=== PATIENT | female | born 1980 | race African-American/Black ===

== ENCOUNTER 2016-09-28 01:21 | Emergency (ER) | payer OTHER ==
[~2016-09-28] VITALS: Ht 188 cm; Wt 140.0 kg
[2016-09-28 01:23] VITALS: BP 136/67; PULSE 93; RESP 16; TEMP 98.9; O2SAT 99
[2016-09-28] MEDS ORDERED: IBUPROFEN 800 MG TAB PO ONE (01:45)
--- NOTE | 2016-09-28 01:47 | PD ---
HPI Chief Complaint: ENT Complaint Time Seen by Provider: 01:44 Travel History International Travel<30 days: No Contact w/Intl Traveler<30days: No Traveled to known affect area: No History of Present Illness HPI Patient comes in complaining of sore throat that began yesterday evening around dinnertime. Patient states sharp stabbing pain in her throat that is radiating to her ear. Patient denies anything for this. Pain is worse with swallowing. Patient denies any known sick contacts. Denies any fevers, nausea, vomiting, chest pain or shortness of breath, sinus congestion, abdominal pain, diarrhea, headache, or neck pain. PFSH Past Medical History Bipolar Disorder: Yes Anxiety: Yes Depression: Yes ?: Not LMP: 09/18/16 Past Surgical History Section: Yes Social History Alcohol Use: No Tobacco Use: Yes (1 PPW) Substance Use: No Allergies-Medications (Allergen,Severity, Reaction): Coded Allergies: Amoxicillin (Verified Adverse Reaction, Severe, 09/28/16) Reported Meds & Prescriptions Reported Meds & Active Scripts Active Clindamycin (Clindamycin HCl) 300 Mg Cap 300 Mg PO Q8HR 10 Days Review of Systems Except as stated in HPI: all other systems reviewed are Neg Physical Exam Narrative GENERAL: Well-developed, overly nourished, in no acute distress, and non-ill appearing. SKIN: Focused skin assessment warm and dry. HEAD: Atraumatic. Normocephalic. EYES: Pupils equal and round. EOMI. No scleral icterus. No injection or drainage. ENT: No nasal bleeding or discharge. Mucous membranes pink and moist. Tympanic membranes pearly dalton bilaterally. Posterior pharynx mildly erythematous without exudate. Uvula is midline. Patient swallowing own saliva and there is no drooling. No tenderness facial sinuses palpation. NECK: Trachea midline. No cervical lymphadenopathy. Supple. No nuclear rigidity. CARDIOVASCULAR: Regular rate and rhythm. No murmur appreciated. RESPIRATORY: No accessory muscle use. No respiratory distress. Clear to auscultation. Breath sounds equal bilaterally. MUSCULOSKELETAL: No obvious deformities. No clubbing. No cyanosis. No edema. Full range of motion. NEUROLOGICAL: Awake and alert. No obvious cranial nerve deficits. Motor grossly within normal limits. Normal speech. PSYCHIATRIC: Appropriate mood and affect; insight and judgment normal. Data Data Last Documented VS Vital Signs Date Time Temp Pulse Resp B/P Pulse Ox O2 Delivery O2 Flow Rate FiO2 09/28/16 01:23 98.9 93 16 136/67 99 Orders Group A Rapid Strep Screen (09/28/16 01:39) Ibuprofen (Motrin) (09/28/16 01:45) Clindamycin (Cleocin) (09/28/16 02:45) MDM Medical Decision Making Medical Screen Exam Complete: Yes Emergency Medical Condition: Yes Differential Diagnosis Strep pharyngitis, viral pharyngitis, otitis media, otitis externa, otalgia, other Narrative Course Patient looks great, non-ill appearing. The patient is tolerating fluids and is well hydrated. Appears pharyngitis confirmed by rapid strep. assay. No clinical evidence by history or evaluation to suspect meningitis and/or sepsis. There was no evidence to suggest peritonsillar abscess or retropharyngeal abscess. I discussed with the patient, diagnosis, plan of care and to follow up with the patients primary physician. The patient was given antibiotics. The patient was instructed to return if the worsens in anyway, especially if not tolerating fluids, increased pain or swelling, difficulty swallowing or breathing, or as needed. The patient agreed with plan. Patient in no obvious distress upon re-evaluation. All pertinent laboratory result(s) discussed with patient. Patient was asked if they wanted to speak to my attending, which the patient did not wish to do at this time. Any questions/ concerns in reference to patient diagnosis/condition discussed and clarified prior to patient's discharge. Reinforced sheer importance of close follow up with patient's primary physician or primary care clinic. Instructed patient to return to ED immediately, if symptoms return/worsen. Pt showed understanding of above instructions. Further instructions and recommendations were detailed in discharge paperwork. Pt ambulated without difficulty out of ED at discharge. Diagnosis Primary Impression: Strep pharyngitis Patient Instructions: General Instructions, Strep Throat (ED) Additional Instructions: Follow-up with your primary care physician in 3-5 days for reevaluation. Take all medication as prescribed. Use [id number] Tylenol and/or ibuprofen as needed for pain and/or fevers. Follow instructions on the packaging. Drink plenty of non-caffeinated and nonalcoholic fluids. Return to the emergency department if symptoms get worse. Med/Other Pt SpecificInfo: Prescription(s) given Scripts Clindamycin 300 Mg Uot138 Mg PO Q8HR 10 Days Ref 0 Prov:Gadiel Jc MD 09/28/16 Disposition: 01 DISCHARGE HOME Condition: Stable Kevin Pelayo Sep 28, 2016 01:47
[2016-09-28] MEDS ORDERED: CLIN1CAP6 PO (02:42)
[2016-09-28] MEDS ORDERED: CLINDAMYCIN 150 MG CAP PO ONE (02:45)
== END 2016-09-28 02:52 | disposition home or self-care (01) ==
LOC: NEPD 01:21
DX: J02.0 Streptococcal pharyngitis (principal); F31.9 Bipolar disorder, unspecified; F41.9 Anxiety disorder, unspecified; F17.200 Nicotine dependence, unspecified, uncomplicated; Z79.899 Other long term (current) drug therapy
CPT/HCPCS: 87880; 99283

== ENCOUNTER 2018-01-16 17:03 | Inpatient (IN) ==
[2018-01-16] MEDS ORDERED: MethylPREDNISolone Sod Succinate Inj 125 MG/2 ML Vial IV.PUSH ONE (17:28)
[2018-01-16] MEDS ORDERED: Morphine Inj 4 MG/ML Vial IV.PUSH ONE ×2 (17:30→20:47)
[2018-01-16] MEDS ORDERED: Sodium Chlor 0.9% Inj 500 ML IV.SIG ONE (17:33)
--- NOTE | 2018-01-16 17:37 | ED ---
HPI General Chief complaint: Dental/Oral Stated complaint: Throat issue Time Seen by Provider: 01/16/18 17:15 Source: patient Mode of arrival: ambulatory Limitations: physical limitation (pain, swelling inthe throat) History of Present Illness HPI Narrative: 38-year-old female presents the ED for evaluation of 12/13 left- sided posterior throat pain. Onset this morning. She states that the pain is worsened over the day and now she is unable to swallow her secretions. Pain radiates towards the ear. Pain is sharp in quality, no alleviating or exacerbating factors reported. Patient endorses chills but has not measured a fever at home. She denies sick contacts. She endorses tubal ligation, LMP 01/07. History gathering is limited secondary to the patient's reticence to speak secondary to pain. Related Data Home Medications Medication Instructions Recorded Confirmed No Known Home Medications 01/16/18 01/16/18 Allergies Allergy/AdvReac Type Severity Reaction Status Date / Time latex Allergy Rash Verified 01/16/18 17:07 Review of Systems ROS: all other systems reviewed are negative PMFSH Medical History Medical History Anxiety (Acute) Bipolar 1 disorder (Acute) Depression (Acute) PTSD (post-traumatic stress disorder) (Acute) Surgical History Surgical History Previous section (Acute) Social History Social History Substance History: Active Abuse Second Hand Smoke Exposure: No Smoking Status: Never smoker How Often Do You Have a Drink Containing Alcohol: Never Recent Travel in [facility] within the Last 8 Weeks: No Recent Out of Country Travel within the Last 8 Weeks: No Substance Abuse Detail Marijuana: Substance Use Status: Active Route Used Substance Abuse: Inhalation Last Used: 01/15/18 Immunization History Tetanus Immunization: <5 Years Tetanus Immunization Year if Known: 2016 Exam Narrative Exam Narrative: GENERAL: Well-nourished, well-developed -[place] female in some distress. Patient has a hot potato voice. SKIN: Focused skin assessment warm/dry. HEAD: Atraumatic. Normocephalic. EYES: Pupils equal and round. No scleral icterus. No injection or drainage. ENT: Right tympanic membrane is obscured by cerumen. Left tympanic membrane pearly dalton, no loss of landmarks. Oropharynx with large mass in the posterior left tonsillar pole. Airway patent. Uvula distorted to the right. NECK: Trachea midline. No JVD. No lymphadenopathy. CARDIOVASCULAR: Regular rate and rhythm. No murmur appreciated. RESPIRATORY: No accessory muscle use. Clear to auscultation. Breath sounds equal bilaterally. GASTROINTESTINAL: Abdomen soft, non-tender, nondistended. Hepatic and splenic margins not palpable. MUSCULOSKELETAL: No obvious deformities. No clubbing. No cyanosis. No edema. NEUROLOGICAL: Awake and alert. No obvious cranial nerve deficits. Motor grossly within normal limits. Normal speech. PSYCHIATRIC: Appropriate mood and affect; insight and judgment normal. Course Initial Documented Vital Signs Temperature 100.5 F H 01/16/18 17:05 Pulse Rate 105 H 01/16/18 17:05 Respiratory Rate 26 H 01/16/18 17:05 Pulse Oximetry 100 01/16/18 17:05 Last Documented Vital Signs Temperature 98.4 F 01/16/18 19:17 Pulse Rate 63 01/16/18 18:50 Respiratory Rate 18 01/16/18 18:50 Blood Pressure 157/89 H 01/16/18 18:50 Pulse Oximetry 100 01/16/18 18:50 Medical Decision Making [facility] Narrative Medical decision making narrative: 38-year-old female presents the ED for evaluation of throat pain. Onset this morning. Patient's febrile and tachycardic on presentation. Physical exam concerning for peritonsillar abscess. O2 saturations 100% with respiratory rate of 18. Patient was administered IV steroids, fluids, acetaminophen, Unasyn. No leukocytosis. test negative. CT concerning for peritonsillar mass versus abscess with compromise of the airway on a few views. On recheck the patient sleeping. O2 sats remained above 95. I spoke with Dr. Ramesh who recommends adding clindamycin and changing to Rocephin. He like the patient n.p.o. at midnight and admitted to medicine. I spoke with Dr. Castaneda who agrees to accept the patient to the medicine service. We will admit her to the ICU for airway checks. Patient is agreeable to this plan. Please see medicine and ENT notes for disposition. Medical Screen Exam Complete: Yes Emergency Medical Condition: Yes Differential Diagnosis Differential Diagnosis: Pharyngitis versus strep pharyngitis versus peritonsillar abscess versus other Lab Data Result diagrams: 01/16/18 17:38 01/16/18 17:38 POC Results POC Urine Results Negative POC Urine Results Negative Lab Results 01/16/18 01/16/18 01/16/18 Range/Units 17:38 17:38 17:38 WBC 11.0 (4.0-11.0) th/mm3 RBC 3.70 L (4.00-5.30) mil/mm3 Hgb 9.0 L (11.6-15.3) gm/dL Hct 28.8 L (35.0-46.0) % MCV 77.9 L (80.0-100.0) fL MCH 24.2 L (27.0-34.0) pg MCHC 31.0 L (32.0-36.0) % RDW 20.0 H (11.6-17.2) % Plt Count 227 (150-450) th/mm3 MPV 9.8 (7.0-11.0) fL Neut % (Auto) 75.3 H (16.0-70.0) % Lymph % (Auto) 13.0 (9.0-44.0) % Brown % (Auto) 11.0 H (0.0-8.0) % Eos % (Auto) 0.3 (0.0-4.0) % Baso % (Auto) 0.4 (0.0-2.0) % Neut # (Auto) 8.3 H (1.8-7.7) th/mm3 Lymph # (Auto) 1.4 (1.0-4.8) th/mm3 Brown # (Auto) 1.2 H (0.0-0.9) th/mm3 Eos # (Auto) 0.0 (0.0-0.4) th/mm3 Baso # (Auto) 0.0 (0.0-0.2) th/mm3 WBC Differential . Differential Comment Auto diff final Sodium 141 (136-145) meq/L Potassium 3.9 (3.5-5.1) meq/L Chloride 107 (98-107) meq/L Carbon Dioxide 28.3 (21.0-32.0) meq/L Anion Gap 6 (5-15) meq/L BUN 10 (7-18) mg/dL Creatinine 0.76 (0.50-1.00) mg/dL Estimated GFR Greater than 89 (>89) mL/min Random Glucose 86 (74-106) mg/dL Lactic Acid 0.8 (0.4-2.0) mmol/L Calcium 8.6 (8.5-10.1) mg/dL Magnesium 2.1 (1.5-2.5) mg/dL Total Bilirubin 0.3 (0.2-1.0) mg/dL AST 34 (15-37) U/L ALT 34 (10-53) U/L Alkaline Phosphatase 82 (45-117) U/L Total Protein 7.7 (6.4-8.2) g/dL Albumin 3.4 (3.4-5.0) g/dL Imaging Data Radiologist's impression: Soft Tissue Neck CT 01/16/18 17:28 CONCLUSION: 1. Abnormal exam demonstrating masslike oral pharyngeal wall thickening, greater on the left than on the right causing significant compromise of the oral pharyngeal airway. There is also thickening of the adenoid tissue. 2. Mildly prominent left jugular nodes. ECG Data Attestation: I personally reviewed and interpreted this ECG as follows: Interpretation: EKG rate 78, sinus rhythm. HI interval 138, QRS 83, QTC 444 ms. Normal axis. No acute ST changes. Discharge Plan Discharge Disposition Patient Disposition: 30 Still Patient Physicians Team ED Provider: Brenden Martinez ED Midlevel Provider: Teena Apodaca Primary Care Provider: Primary Care Ambrose,Aimee Attending Provider: Isabela Castaneda Other Providers: Pavel Ramesh Discharge Interventions Interventions: Vital Signs Last Done: 01/16/18 19:17 Status ED Status: Admitted Patient
[2018-01-16 17:59] LABS: Baso % (Auto) 0.4 % (0.0-2.0); Eos % (Auto) 0.3 % (0.0-4.0); Hematocrit 28.8 % (35.0-46.0); Lymph # (Auto) 1.4 th/mm3 (1.0-4.8); Mean Corpuscular Hemoglobin 24.2 pg (27.0-34.0); Mean Corpuscular Volume 77.9 fL (80.0-100.0); Mean Platelet Volume 9.8 fL (7.0-11.0); Mono # (Auto) 1.2 th/mm3 (0.0-0.9); Neut # (Auto) 8.3 th/mm3 (1.8-7.7); Neut % (Auto) 75.3 % (16.0-70.0); Platelet Count 227 th/mm3 (150-450)
[2018-01-16] MEDS ORDERED: Ampicillin/Sulbactam Inj 3 GM in Sodium Chloride 0.9% Inj 100 ML IV.SIG ONE ×2 (18:05→19:27)
[2018-01-16 18:21] LABS: Alanine Aminotransferase 34 U/L (10-53); Albumin 3.4 g/dL (3.4-5.0); Anion Gap 6 meq/L (5-15); Aspartate Aminotransferase 34 U/L (15-37); Blood Urea Nitrogen 10 mg/dL (7-18); Calcium 8.6 mg/dL (8.5-10.1); Carbon Dioxide 28.3 meq/L (21.0-32.0); Chloride 107 meq/L (98-107); Glomerular Filtration Rate Greater Than 89 mL/min (>89); Glucose,Random 86 mg/dL (74-106); Magnesium 2.1 mg/dL (1.5-2.5); Potassium 3.9 meq/L (3.5-5.1); Sodium 141 meq/L (136-145)
[2018-01-16 18:23] LABS: Alkaline Phosphatase 82 U/L (45-117); Total Protein 7.7 g/dL (6.4-8.2)
--- NOTE | 2018-01-16 18:57 | CT ---
EXAM DATE: 01/16/2018 6:30 PM EST AGE/SEX: 38 years / Female INDICATIONS: Left throat swelling and pain. Evaluate for abscess. CLINICAL DATA: This is the patient's initial encounter. Patient reports that signs and symptoms have been present for 1 day and indicates a pain score of 10/10. MEDICAL/SURGICAL HISTORY: None. None. RADIATION DOSE: 20.43 CTDI (mGy) COMPARISON: No prior exams available for comparison. TECHNIQUE: Helical acquisition was performed using a multirow detector CT scanner during the adminis tration of 70 ml Omnipaque 350 (iohexol) nonionic water-soluble contrast as a single exam dose. Usi ng automated exposure control and adjustment of the mA and/or kV according to patient size, radiation dose was kept as low as reasonably achievable to obtain optimal diagnostic quality images. DICOM fo rmat image data is available electronically for review and comparison. FINDINGS: The examination is abnormal demonstrating marked swelling of the left oral pharyngeal tissues measur ing 4.5 x 2.8 cm and causing deviation of the airway to the right and, on 3 images (images #26 throug h 28), the airway is not discernible. No focal collections of gas within the thickened tissue. The ri ght lymphatic tissue in the tonsillar fossa is also mildly enlarged and the adenoid tissue is thicken ed to 2.5 cm. Soft tissue thickening extends along the left epiglottis. The glottic airway and infrag lottic airway is normal in appearance. Left jugular lymph nodes measure up to 1.3 cm in size. There i s a symmetric appearance of the parotid and submandibular glands. The thyroid has a homogeneous densi ty. Osseous structures are grossly intact. CONCLUSION: 1. Abnormal exam demonstrating masslike oral pharyngeal wall thickening, greater on the left than on the right causing significant compromise of the oral pharyngeal airway. There is also thickening of the adenoid tissue. 2. Mildly prominent left jugular nodes. Electronically signed by: Keenan Amin MD 01/16/2018 6:56 PM EST
[2018-01-16] MEDS ORDERED: Clindamycin 900 mg/NS Premix 900 MG/50 ML PIGGYBACK IV.SIG ONE (19:36)
[2018-01-16] MEDS ORDERED: Bisacodyl 10 MG Supp RECTAL PRN (22:01)
[2018-01-16] MEDS ORDERED: Morphine Inj 4 MG/ML Vial IV.PUSH PRN (22:06)
--- NOTE | 2018-01-16 22:10 | P.HP ---
History of Present Illness Service: [facility] Primary Care Physician: No Primary Care Physician History of Present Illness: 38-year-old female with no significant past medical history presents to the emergency department for evaluation of neck swelling and difficulty swallowing/ breathing. The patient reports that yesterday she had right-sided neck and throat swelling with pain however she had several coughing spells and coughed up mucus and blood which relieved her symptoms. She was in her usual state of health when she went to bed and awoke this morning with significant left-sided neck swelling and left-sided throat pain. She reports difficulty breathing and speaking. She is spitting her secretions into an emesis basin. Her oxygen saturation is 100% on room air. No stridor. The patient endorses a 1 day history of fever/chills. The patient denies any chest pain. No abdominal pain. No nausea/vomiting/diarrhea. No lateralizing signs/symptoms. Inpatient Certification: I certify that the inpatient services were ordered in accordance with Medicare regulations governing the order. This includes certification that hospital inpatient services are reasonable and necessary and in the case of services not specified as inpatient-only under 42 CFR 419.22(n), that they are appropriately provided as inpatient services in accordance to with the 2-midnight benchmark under 43 CFR 412.3(e) Review of Systems All other systems reviewed negative except as stated in [facility] - History History Provided By: Patient - Medical History Medical History: Medical History (Last Reviewed 01/16/18 @ 22:03 by Isabela Castaneda MD) Anxiety Bipolar 1 disorder Depression PTSD (post-traumatic stress disorder) - Surgical History Surgical History: Surgical History (Last Reviewed 01/16/18 @ 22:03 by Isabela Castaneda MD) Previous section - Family History Family History: Family History (Last Updated 01/16/18 @ 22:04 by Isabela Castaneda MD) Other Family history normal - Tobacco History Second Hand Smoke Exposure: No Smoking Status: Never smoker - Alcohol History How Often Do You Have a Drink Containing Alcohol: Never - Substance Use History Substance History: Active Abuse - Substance Use Type Marijuana Status: Active Route Used: Inhalation Last Used: 01/15/18 - Travel History Recent Travel in the [place] Within the Last 8 Weeks: No Recent Travel Out of the Country Within the Last 8 Weeks: No - Immunization History Tetanus Immunization: <5 Years Tetanus Immunization Year if Known: 2015 Medications and Allergies Allergies Allergy/AdvReac Type Severity Reaction Status Date / Time latex Allergy Rash Verified 01/16/18 17:07 Home Medications Medication Instructions Recorded Confirmed Type No Known Home Medications 01/16/18 01/16/18 History Exam Vital signs: Vital Signs 01/16/18 17:05 01/16/18 17:08 01/16/18 17:14 Temperature 100.5 F H Pulse Rate 105 H 98 H Respiratory Rate 26 H 22 Blood Pressure 247/127 H Pulse Oximetry 100 100 01/16/18 17:36 01/16/18 18:50 01/16/18 19:17 Temperature 98.4 F Pulse Rate 63 Respiratory Rate 18 Blood Pressure 157/89 H Pulse Oximetry 99 100 Intake & Output 01/16/18 01/16/18 01/17/18 06:59 18:59 06:59 Intake Total 600 / 600 150 / 150 Balance 600 / 600 150 / 150 Weight 83.915 kg Intake: IV 600 / 600 150 / 150 Ofirmev Inj 1,000 mg In 100 ml 100 / 100 @ 400 mls/hr IV.SIG ONCE ONE Rx #:[id number] Unasyn Inj 3 GM In NS Inj 100 100 / 100 ML @ 200 mls/hr IV.SIG ONCE ONE Rx#:[id number] Cleocin 900 mg/NS Premix 900 mg 50 / 50 In 50 ml @ 100 mls/hr IV.SIG ONCE ONE Rx#:[id number] NS Inj 500 ML @ Wide Open IV. 500 / 500 SIG BOLUS ONE Rx#:[id number] Narrative: Gen.: No acute distress Head: Normocephalic. Atraumatic. EENT: Pupils equal round and reactive to light. Nose without drainage. Airway intact. Oropharynx with large mass in the posterior left tonsillar pole. Uvula deviation to the right. Left sided neck swelling with trachea midline. Cardiovascular: Regular rate and rhythm. No murmurs, rubs or gallops. Respiratory: Lungs clear to auscultation bilaterally. No wheezes or rhonchi. Abdomen: Soft, nontender, nondistended. No peritoneal signs. Musculoskeletal: No gross deformities. No edema. Skin: No obvious rashes or erythema. Neuro: Sensory and motor grossly intact. Cranial nerves II through XII grossly intact. Results - Labs CBC & Chem 7: 01/16/18 17:38 01/16/18 17:38 Labs: Laboratory Results - last 24 hr 01/16/18 01/16/18 01/16/18 17:38 17:38 17:38 WBC 11.0 RBC 3.70 L Hgb 9.0 L Hct 28.8 L MCV 77.9 L MCH 24.2 L MCHC 31.0 L RDW 20.0 H Plt Count 227 MPV 9.8 Neut % (Auto) 75.3 H Lymph % (Auto) 13.0 Dickinson % (Auto) 11.0 H Eos % (Auto) 0.3 Baso % (Auto) 0.4 Neut # (Auto) 8.3 H Lymph # (Auto) 1.4 Dickinson # (Auto) 1.2 H Eos # (Auto) 0.0 Baso # (Auto) 0.0 WBC Differential . Differential Comment Auto diff final Sodium 141 Potassium 3.9 Chloride 107 Carbon Dioxide 28.3 Anion Gap 6 BUN 10 Creatinine 0.76 Estimated GFR Greater than 89 Random Glucose 86 Lactic Acid 0.8 Calcium 8.6 Magnesium 2.1 Total Bilirubin 0.3 AST 34 ALT 34 Alkaline Phosphatase 82 Total Protein 7.7 Albumin 3.4 - Imaging Impressions Soft Tissue Neck CT 01/16/18 17:28 CONCLUSION: 1. Abnormal exam demonstrating masslike oral pharyngeal wall thickening, greater on the left than on the right causing significant compromise of the oral pharyngeal airway. There is also thickening of the adenoid tissue. 2. Mildly prominent left jugular nodes. Caprini VTE Risk Assessment Caprini VTE Risk Assessment: No/Low Risk (score <= 1) Caprini Risk Assessment Model: Point Value = 1 Point Value = 2 Point Value = 3 Point Value = 5 Age 41-60 Minor surgery BMI > 25 kg/m2 Swollen legs Varicose veins or History of unexplained or recurrent spontaneous Oral contraceptives or hormone replacement Sepsis (< 1 month) Serious lung disease, including pneumonia (< 1 month) Abnormal pulmonary function Acute myocardial infarction Congestive heart failure (< 1 month) History of inflammatory bowel disease Medical patient at bed rest Age 61-74 Arthroscopic surgery Major open surgery (> 45 min) Laparoscopic surgery (> 45 min) Malignancy Confined to bed (> 72 hours) Immobilizing plaster cast Central venous access Age >= 75 History of VTE Family history of VTE Factor V Leiden Prothrombin [id number] Lupus anticoagulant Anticardiolipin antibodies Elevated serum homocysteine Heparin-induced thrombocytopenia Other congenital or acquired thrombophilia Stroke (< 1 month) Elective arthroplasty Hip, pelvis, or leg fracture Acute spinal cord injury (< 1 month) Prophylaxis Regimen: Total Risk Factor Score Risk Level Prophylaxis Regimen 0-1 Low Early ambulation 2 Moderate Order ONE of the following: *Sequential Compression Device (SCD) *Heparin 5000 units SQ BID 3-4 Higher Order ONE of the following medications: *Heparin 5000 units SQ TID *Enoxaparin/Lovenox 40 mg SQ daily (WT < 150 kg, CrCl > 30 mL/min) *Enoxaparin/Lovenox 30 mg SQ daily (WT < 150 kg, CrCl > 10-29 mL/min) *Enoxaparin/Lovenox 30 mg SQ BID (WT < 150 kg, CrCl > 30 mL/min) AND/OR *Sequential Compression Device (SCD) 5 or more Highest Order ONE of the following medications: *Heparin 5000 units SQ TID (Preferred with Epidurals) *Enoxaparin/Lovenox 40 mg SQ daily (WT < 150 kg, CrCl > 30 mL/min) *Enoxaparin/Lovenox 30 mg SQ daily (WT < 150 kg, CrCl > 10-29 mL/min) *Enoxaparin/Lovenox 30 mg SQ BID (WT < 150 kg, CrCl > 30 mL/min) AND *Sequential Compression Device (SCD) Assessment and Plan - Plan Assessment/plan: 1. Oropharyngeal mass Neck CT significant for oral pharyngeal wall thickening greater on the left than the right causing significant compromise of the oropharyngeal airway ENT consulted, appreciate assistance Antibiotics per ENTRocephin 2 g every 12 hours and clindamycin IV IV steroids Monitor airway closely in ICU setting FEN N.p.o. NS at 100 cc/hour Electrolytes: Monitor and replete as needed
[2018-01-16] MEDS: Sod Chloride 0.9% Inj 1,000 ML IV.CONT SCH (23:01)
[2018-01-17] MEDS: Clindamycin 900 mg/NS Premix 900 MG/50 ML PIGGYBACK IV.SIG SCH ×3 (04:30→20:19)
[2018-01-17 07:01] LABS: Baso % (Auto) 0.1 % (0.0-2.0); Hematocrit 28.1 % (35.0-46.0); Lymph # (Auto) 0.5 th/mm3 (1.0-4.8); Lymph % (Auto) 5.4 % (9.0-44.0); Mean Corpuscular Volume 78.2 fL (80.0-100.0); Mean Platelet Volume 9.7 fL (7.0-11.0); Mono # (Auto) 0.4 th/mm3 (0.0-0.9); Mono % (Auto) 3.9 % (0.0-8.0); Neut % (Auto) 90.6 % (16.0-70.0); Platelet Count 209 th/mm3 (150-450); Red Blood Count 3.59 mil/mm3 (4.00-5.30); Red Cell Distribution Width 20.3 % (11.6-17.2); White Blood Count 9.9 th/mm3 (4.0-11.0)
[2018-01-17 07:25] LABS: Anion Gap 10 meq/L (5-15); Blood Urea Nitrogen 7 mg/dL (7-18); Calcium 8.7 mg/dL (8.5-10.1); Carbon Dioxide 23.2 meq/L (21.0-32.0); Chloride 105 meq/L (98-107); Glomerular Filtration Rate Greater Than 89 mL/min (>89); Glucose,Random 113 mg/dL (74-106); Sodium 138 meq/L (136-145)
[2018-01-17] MEDS: Sod Chloride 0.9% Inj 1,000 ML IV.CONT SCH ×2 (09:37→22:23)
--- NOTE | 2018-01-17 12:32 | ECG ---
Date Performed: 01/16/2018 Time Performed: 17:57:48 PTAGE: 38 years EKG: Sinus rhythm MODERATE VOLTAGE CRITERIA FOR LVH, CONSIDER NORMAL VARIANT BORDERLINE ECG NO PREVIOUS TRACING DOCTOR: Silvestre Boone Interpretating Date/Time 01/17/2018 12:30:49
--- NOTE | 2018-01-17 14:11 | P.PNIM ---
Subjective Interval history: breathing a little better. neck swelling down a little. no cp or sob. no n/v. Physical Exam Vital signs: Vital Signs 01/16/18 17:05 01/16/18 17:08 01/16/18 17:14 Temperature 100.5 F H Pulse Rate 105 H 98 H Respiratory Rate 26 H 22 Blood Pressure 247/127 H Pulse Oximetry 100 100 01/16/18 17:36 01/16/18 18:50 01/16/18 19:17 Temperature 98.4 F Pulse Rate 63 Respiratory Rate 18 Blood Pressure 157/89 H Pulse Oximetry 99 100 01/16/18 22:00 01/16/18 23:16 01/17/18 00:48 Temperature Pulse Rate 55 L 60 Respiratory Rate 16 20 Blood Pressure 140/89 124/75 128/68 Pulse Oximetry 100 100 01/17/18 00:49 01/17/18 01:00 01/17/18 01:10 Temperature 98.3 F Pulse Rate 67 65 Respiratory Rate 26 H Blood Pressure 139/68 Pulse Oximetry 99 100 01/17/18 02:00 01/17/18 03:00 01/17/18 04:00 Temperature 98.3 F 98.3 F Pulse Rate 64 66 63 Respiratory Rate 13 15 16 Blood Pressure 139/72 134/70 143/71 H Pulse Oximetry 97 99 100 01/17/18 04:37 01/17/18 05:00 01/17/18 06:00 Temperature Pulse Rate 70 59 L Respiratory Rate 15 15 Blood Pressure 134/70 156/99 H Pulse Oximetry 100 99 100 01/17/18 07:00 01/17/18 07:12 01/17/18 08:00 Temperature 98.2 F Pulse Rate 60 85 54 L Respiratory Rate 16 23 18 Blood Pressure 154/77 H 161/81 H Pulse Oximetry 100 100 100 01/17/18 09:00 01/17/18 10:00 01/17/18 11:06 Temperature Pulse Rate 62 55 L 68 Respiratory Rate 14 13 26 H Blood Pressure 137/76 146/79 H Pulse Oximetry 100 100 100 01/17/18 12:00 Temperature 97.9 F Pulse Rate 65 Respiratory Rate 14 Blood Pressure 128/62 Pulse Oximetry 100 Intake & Output 01/16/18 01/17/18 01/17/18 18:59 06:59 18:59 Intake Total 600 / 600 300 / 300 1150 / 1150 Balance 600 / 600 300 / 300 1150 / 1150 Weight 83.915 kg 104.6 kg Intake: IV 600 / 600 300 / 300 1150 / 1150 NS Inj 1,000 ML @ 100 mls/hr IV 1000 / 1000 .CONT .Q10H [facility] Rx#:[id number] Ofirmev Inj 1,000 mg In 100 ml 100 / 100 @ 400 mls/hr IV.SIG ONCE ONE Rx #:[id number] Unasyn Inj 3 GM In NS Inj 100 100 / 100 ML @ 200 mls/hr IV.SIG ONCE ONE Rx#:[id number] Cleocin 900 mg/NS Premix 900 mg 100 / 100 50 / 50 In 50 ml @ 100 mls/hr IV.SIG Q8H [facility] Rx#:[id number] NS Inj 500 ML @ Wide Open IV. 500 / 500 SIG BOLUS ONE Rx#:[id number] Rocephin Inj 2,000 MG In NS Inj 100 / 100 100 / 100 100 ML @ 200 mls/hr IV.SIG Q12H [facility] Rx#:[id number] Other: Weight On Admission 104.6 kg Narrative: GENERAL: lying in bed. NAD. SKIN: Warm and dry. HEAD: Normocephalic. EYES: No scleral icterus. No injection or drainage. NECK: Supple, trachea midline. No JVD. left neck fullness, ttp CARDIOVASCULAR: Regular rate and rhythm without murmurs, gallops, or rubs. RESPIRATORY: Breath sounds equal bilaterally. No accessory muscle use. GASTROINTESTINAL: Abdomen soft, non-tender, nondistended. MUSCULOSKELETAL: No cyanosis, or edema. BACK: Nontender without obvious deformity. No CVA tenderness. Results - Labs CBC & Chem 7: 01/17/18 06:42 01/17/18 06:42 Laboratory Results - last 24 hr 01/16/18 01/16/18 01/16/18 17:38 17:38 17:38 WBC 11.0 RBC 3.70 L Hgb 9.0 L Hct 28.8 L MCV 77.9 L MCH 24.2 L MCHC 31.0 L RDW 20.0 H Plt Count 227 MPV 9.8 Neut % (Auto) 75.3 H Lymph % (Auto) 13.0 Campbell % (Auto) 11.0 H Eos % (Auto) 0.3 Baso % (Auto) 0.4 Neut # (Auto) 8.3 H Lymph # (Auto) 1.4 Campbell # (Auto) 1.2 H Eos # (Auto) 0.0 Baso # (Auto) 0.0 WBC Differential . Differential Comment Auto diff final Sodium 141 Potassium 3.9 Chloride 107 Carbon Dioxide 28.3 Anion Gap 6 BUN 10 Creatinine 0.76 Estimated GFR Greater than 89 Random Glucose 86 Lactic Acid 0.8 Calcium 8.6 Magnesium 2.1 Total Bilirubin 0.3 AST 34 ALT 34 Alkaline Phosphatase 82 Total Protein 7.7 Albumin 3.4 Nasal Screen MRSA (PCR) 01/17/18 01/17/18 01/17/18 01:08 06:42 06:42 WBC 9.9 RBC 3.59 L Hgb 9.0 L Hct 28.1 L MCV 78.2 L MCH 25.0 L MCHC 32.0 RDW 20.3 H Plt Count 209 MPV 9.7 Neut % (Auto) 90.6 H Lymph % (Auto) 5.4 L Campbell % (Auto) 3.9 Eos % (Auto) 0.0 Baso % (Auto) 0.1 Neut # (Auto) 9.0 H Lymph # (Auto) 0.5 L Campbell # (Auto) 0.4 Eos # (Auto) 0.0 Baso # (Auto) 0.0 WBC Differential . Differential Comment Auto diff final Sodium 138 Potassium 4.0 Chloride 105 Carbon Dioxide 23.2 Anion Gap 10 BUN 7 Creatinine 0.63 Estimated GFR Greater than 89 Random Glucose 113 H Lactic Acid Calcium 8.7 Magnesium Total Bilirubin AST ALT Alkaline Phosphatase Total Protein Albumin Nasal Screen MRSA (PCR) Not detected Microbiology 01/16/18 17:30 Blood - Peripheral Aerobic Blood Culture - Preliminary No growth in 1 day 01/16/18 17:30 Blood - Peripheral Anaerobic Blood Culture - Preliminary No growth in 1 day 01/16/18 17:38 Blood - Peripheral Aerobic Blood Culture - Preliminary No growth in 1 day 01/16/18 17:38 Blood - Peripheral Anaerobic Blood Culture - Preliminary No growth in 1 day 01/16/18 17:30 Throat Group A Streptococcus Screen ([facility]) - Final Positive Grp A Strep Antigen - Imaging Impressions Soft Tissue Neck CT 01/16/18 17:28 CONCLUSION: 1. Abnormal exam demonstrating masslike oral pharyngeal wall thickening, greater on the left than on the right causing significant compromise of the oral pharyngeal airway. There is also thickening of the adenoid tissue. 2. Mildly prominent left jugular nodes. Assessment and Plan - Plan //Sepsis on admission, with fever, tachycardia, tachypnea, strep abscess neck. /Oropharyngeal mass Neck CT significant for oral pharyngeal wall thickening greater on the left than the right causing significant compromise of the oropharyngeal airway ENT consulted, appreciate assistance Antibiotics per ENTRocephin 2 g every 12 hours and clindamycin IV IV steroids Monitor airway closely in ICU setting =01/17. improving on keith abx, steroids. continue. followup ENT reccs. appreciate assist. FEN N.p.o. NS at 100 cc/hour Electrolytes: Monitor and replete as needed Discussed Condition With: patient, nurse.
--- NOTE | 2018-01-17 14:23 | MB ---
cc: Pavel Ramesh MD DATE: 01/17/[address] Castaneda. REASON FOR ENT CONSULTATION: Left peritonsillar abscess. HISTORY OF PRESENT ILLNESS: Antonette Garcia is a healthy 38-year-old woman who presented to the emergency room on the evening of 01/16/2018 complaining of progressive pain throughout the day of the left side of her throat with difficulty swallowing and slight difficulty in her breathing. CT scan was obtained which showed a large phlegmonous soft tissue mass in the left oropharynx extending down into the hypopharynx. There is no discrete abscess noted. There was compromise of the nasal airway. Hypopharynx and larynx were completely patent. She is able to maintain her O2 saturations 100% on room air with a respiration rate of 18. She states she had some spontaneous rupture and some blood from her mouth shortly after she presented to the hospital. She had been begun on 10 mg Decadron, 2 grams Rocephin every 12 hours and 900 mg of clindamycin every 8 hours. She is now nearly 24 hours since presentation. She reports she is feeling much improved, but still has some discomfort in her throat. She states she is hungry, she is having no airway compromise. PAST MEDICAL HISTORY: No significant medical history. SOCIAL HISTORY: She lives with her cousin and a 2-year-old autistic child, which is hers. She does not work outside of her home, no medications prior to admission. She admits to smoking marijuana occasionally. PHYSICAL EXAMINATION: GENERAL: She is alert and cooperative, in no distress. VITAL SIGNS: Most recent temperature of 97.9, pulse 69, respirations 16, BP 120/62, pulse oximetry 100% on room air. HEENT: Head is normocephalic and atraumatic. Face is normal. Oral cavity teeth in good condition. Tongue and mandible normal. There is moderate hypertrophy of the left tonsil with some purulent material draining from the crypts superiorly. No evidence of abscess. She is able to open her mouth widely. Oropharynx is patent. NECK: There is tenderness in the left submandibular triangle. No fluctuance, no erythema. No palpable nodes or masses. EARS: Normal auricles, ear canals and tympanic membranes. NOSE: Patent bilaterally without purulence, polyps, or rhinorrhea. ASSESSMENT: Left peritonsillar cellulitis, improving with treatment plan discussed with the patient and with the nursing staff and with the community case manager. Recommend she remain inpatient on his IV antibiotic regimen another 24 hours. Recommend discharge and provided with a prescription now for cefprozil 500 mg twice a day for 10 days. I will contact her through my office and we will schedule her for outpatient adenotonsillectomy in the next 3-4 weeks following resolution of this acute infection. Pavel Ramesh MD [facility]/ct , 01:40 PM , 01:47 PM
[2018-01-18] MEDS: Clindamycin 900 mg/NS Premix 900 MG/50 ML PIGGYBACK IV.SIG SCH ×2 (04:41→12:23)
[2018-01-18 04:54] VITALS: O2SAT 100
[2018-01-18] MEDS: Sod Chloride 0.9% Inj 1,000 ML IV.CONT SCH (05:29)
[2018-01-18 10:35] VITALS: BP 149/74; RESP 44; TEMP 98.1
[2018-01-18 11:43] VITALS: PULSE 65
--- NOTE | 2018-01-18 16:28 | P.PNIM ---
Subjective Interval history: Patient seen this morning prior to discharge. Says she is feeling much better. Denies any chest pain shortness of breath. Reports pain is under control. Denies any difficulty swallowing. Breathing comfortably. Physical Exam Vital signs: Vital Signs 01/17/18 17:03 01/17/18 19:00 01/17/18 19:30 Temperature Pulse Rate 80 92 H Respiratory Rate 32 H 37 H Blood Pressure 116/61 Pulse Oximetry 100 100 100 01/17/18 20:00 01/17/18 20:02 01/17/18 22:00 Temperature 98.2 F Pulse Rate 73 77 68 Respiratory Rate 18 23 20 Blood Pressure 117/70 117/70 115/60 Pulse Oximetry 100 100 100 01/17/18 23:00 01/18/18 00:00 01/18/18 01:00 Temperature 97.6 F Pulse Rate 79 66 65 Respiratory Rate 34 H 20 16 Blood Pressure 122/78 128/81 116/71 Pulse Oximetry 100 100 99 01/18/18 02:00 01/18/18 02:03 01/18/18 03:00 Temperature Pulse Rate 76 73 68 Respiratory Rate 16 17 Blood Pressure 116/71 Pulse Oximetry 98 98 99 01/18/18 03:27 01/18/18 04:00 01/18/18 04:34 Temperature 97.9 F Pulse Rate 64 68 70 Respiratory Rate 16 16 16 Blood Pressure 110/70 110/67 147/65 H Pulse Oximetry 96 100 100 01/18/18 07:00 01/18/18 08:00 01/18/18 08:19 Temperature 98.1 F Pulse Rate 60 61 65 Respiratory Rate 17 17 28 H Blood Pressure 149/74 H 149/74 H Pulse Oximetry 100 100 99 01/18/18 09:00 01/18/18 10:00 Temperature Pulse Rate 65 Respiratory Rate 44 H Blood Pressure Pulse Oximetry 100 100 Intake & Output 01/17/18 01/18/18 01/18/18 18:59 06:59 18:59 Intake Total 1690 / 1690 500 / 500 Output Total 600 / 600 Balance 1090 / 1090 500 / 500 Weight 104.6 kg Intake: IV 1150 / 1150 200 / 200 NS Inj 1,000 ML @ 100 mls/hr IV 1000 / 1000 .CONT .Q10H [facility] Rx#:[id number] Cleocin 900 mg/NS Premix 900 mg 50 / 50 100 / 100 In 50 ml @ 100 mls/hr IV.SIG Q8H [facility] Rx#:[id number] Rocephin Inj 2,000 MG In NS Inj 100 / 100 100 / 100 100 ML @ 200 mls/hr IV.SIG Q12H [facility] Rx#:[id number] Oral 540 / 540 300 / 300 Output: Urine 600 / 600 Other: # Voids 4 Date of Last Bowel Movement 01/17/18 # Bowel Movements 1 Narrative: GENERAL: lying in bed. NAD. Oriented x3. SKIN: Warm and dry. HEAD: Normocephalic. EYES: No scleral icterus. No injection or drainage. NECK: Supple, trachea midline. No JVD. left neck fullness, ttp improved from yesterday CARDIOVASCULAR: Regular rate and rhythm without murmurs, gallops, or rubs. RESPIRATORY: Breath sounds equal bilaterally. No accessory muscle use. GASTROINTESTINAL: Abdomen soft, non-tender, nondistended. MUSCULOSKELETAL: No cyanosis, or edema. BACK: Nontender without obvious deformity. No CVA tenderness. Results - Labs CBC & Chem 7: 01/17/18 06:42 01/17/18 06:42 Laboratory Results - last 24 hr 01/17/18 20:40 POC Glucose 126 H Microbiology 01/16/18 17:30 Blood - Peripheral Aerobic Blood Culture - Preliminary No growth in 2 days 01/16/18 17:30 Blood - Peripheral Anaerobic Blood Culture - Preliminary No growth in 2 days 01/16/18 17:38 Blood - Peripheral Aerobic Blood Culture - Preliminary No growth in 2 days 01/16/18 17:38 Blood - Peripheral Anaerobic Blood Culture - Preliminary No growth in 2 days Assessment and Plan - Plan //Sepsis on admission, with fever, tachycardia, tachypnea, strep abscess neck. /Oropharyngeal mass Neck CT significant for oral pharyngeal wall thickening greater on the left than the right causing significant compromise of the oropharyngeal airway ENT consulted, appreciate assistance Antibiotics per ENTRocephin 2 g every 12 hours and clindamycin IV IV steroids Monitor airway closely in ICU setting =01/17. improving on keith abx, steroids. continue. followup ENT reccs. appreciate assist. = 01/18. Discussed with ENT cleared for discharge. Discharge on prednisone taper and 10-day course of by mouth antibiotics as per ENT. Patient is follow- up with Dr. Ramesh as outpatient. Discussed Condition With: Patient, nurse, ENT
--- NOTE | 2018-01-18 16:31 | P.DS ---
Date of admission: 01/16/18 19:54 Primary care physician: No Primary Care Physician Brief History from admission: 38-year-old female with no significant past medical history presents to the emergency department for evaluation of neck swelling and difficulty swallowing/ breathing. The patient reports that yesterday she had right-sided neck and throat swelling with pain however she had several coughing spells and coughed up mucus and blood which relieved her symptoms. She was in her usual state of health when she went to bed and awoke this morning with significant left-sided neck swelling and left-sided throat pain. She reports difficulty breathing and speaking. She is spitting her secretions into an emesis basin. Her oxygen saturation is 100% on room air. No stridor. The patient endorses a 1 day history of fever/chills. The patient denies any chest pain. No abdominal pain. No nausea/vomiting/diarrhea. No lateralizing signs/symptoms. DS: Medications - Discharge Medications Prescriptions: cefprozil 500 mg PO Q12H 10 Days #20 tab prednisone 10 mg PO BID #10 tab DS: Summary Hospital Course: Patient presented with sepsis on admission. Found to have oropharyngeal mass on CT imaging as below. Throat swab positive for group A strep. Patient was treated with IV antibiotics, IV steroids with improvement. Patient is discharged with prednisone taper as well as by mouth antibiotics. She is to follow-up with Dr. Ramesh, ENT as outpatient. Patient conveys understanding For problem based summary from most recent progress note, please see below. //Sepsis on admission, with fever, tachycardia, tachypnea, strep abscess neck. /Oropharyngeal mass Neck CT significant for oral pharyngeal wall thickening greater on the left than the right causing significant compromise of the oropharyngeal airway ENT consulted, appreciate assistance Antibiotics per ENTRocephin 2 g every 12 hours and clindamycin IV IV steroids Monitor airway closely in ICU setting =01/17. improving on keith abx, steroids. continue. followup ENT reccs. appreciate assist. = 01/18. Discussed with ENT cleared for discharge. Discharge on prednisone taper and 10-day course of by mouth antibiotics as per ENT. Patient is follow- up with Dr. Ramesh as outpatient. - Time Spent with Patient Total time spent providing and/or coordinating discharge services: Greater than 30 minutes - Quality: VTE Deep Vein Thrombosis/Pulmonary Embolism Present on Admission: No Exam Vital signs: Vital Signs 01/17/18 17:03 01/17/18 19:00 01/17/18 19:30 Temperature Pulse Rate 80 92 H Respiratory Rate 32 H 37 H Blood Pressure 116/61 Pulse Oximetry 100 100 100 01/17/18 20:00 01/17/18 20:02 01/17/18 22:00 Temperature 98.2 F Pulse Rate 73 77 68 Respiratory Rate 18 23 20 Blood Pressure 117/70 117/70 115/60 Pulse Oximetry 100 100 100 01/17/18 23:00 01/18/18 00:00 01/18/18 01:00 Temperature 97.6 F Pulse Rate 79 66 65 Respiratory Rate 34 H 20 16 Blood Pressure 122/78 128/81 116/71 Pulse Oximetry 100 100 99 01/18/18 02:00 01/18/18 02:03 01/18/18 03:00 Temperature Pulse Rate 76 73 68 Respiratory Rate 16 17 Blood Pressure 116/71 Pulse Oximetry 98 98 99 01/18/18 03:27 01/18/18 04:00 01/18/18 04:34 Temperature 97.9 F Pulse Rate 64 68 70 Respiratory Rate 16 16 16 Blood Pressure 110/70 110/67 147/65 H Pulse Oximetry 96 100 100 01/18/18 07:00 01/18/18 08:00 01/18/18 08:19 Temperature 98.1 F Pulse Rate 60 61 65 Respiratory Rate 17 17 28 H Blood Pressure 149/74 H 149/74 H Pulse Oximetry 100 100 99 01/18/18 09:00 01/18/18 10:00 Temperature Pulse Rate 65 Respiratory Rate 44 H Blood Pressure Pulse Oximetry 100 100 Intake & Output 01/17/18 01/18/18 01/18/18 18:59 06:59 18:59 Intake Total 1690 / 1690 500 / 500 Output Total 600 / 600 Balance 1090 / 1090 500 / 500 Weight 104.6 kg Intake: IV 1150 / 1150 200 / 200 NS Inj 1,000 ML @ 100 mls/hr IV 1000 / 1000 .CONT .Q10H [facility] Rx#:[id number] Cleocin 900 mg/NS Premix 900 mg 50 / 50 100 / 100 In 50 ml @ 100 mls/hr IV.SIG Q8H [facility] Rx#:[id number] Rocephin Inj 2,000 MG In NS Inj 100 / 100 100 / 100 100 ML @ 200 mls/hr IV.SIG Q12H [facility] Rx#:[id number] Oral 540 / 540 300 / 300 Output: Urine 600 / 600 Other: # Voids 4 Date of Last Bowel Movement 01/17/18 # Bowel Movements 1 Results Procedures completed during hospitalization: No invasive procedures. Labs on day of discharge: Labs from last 24 hours 01/17/18 20:40 POC Glucose 126 H Preliminary micro results at discharge 01/16/18 17:30 Aerobic Blood Culture - Preliminary Blood - Peripheral No growth in 2 days Anaerobic Blood Culture - Preliminary No growth in 2 days 01/16/18 17:38 Aerobic Blood Culture - Preliminary Blood - Peripheral No growth in 2 days Anaerobic Blood Culture - Preliminary No growth in 2 days - Impressions ITS Impressions Soft Tissue Neck CT 01/16/18 17:28 CONCLUSION: 1. Abnormal exam demonstrating masslike oral pharyngeal wall thickening, greater on the left than on the right causing significant compromise of the oral pharyngeal airway. There is also thickening of the adenoid tissue. 2. Mildly prominent left jugular nodes. Discharge Plan - Discharge Disposition Patient Disposition: 01 Discharge Home - Discharge Condition Condition: Good - Discharge Order Discharge Orders: Discharge Order (Routine); Ordered 01/18/18 Ordered By: Damien Andrews - Discharge Details Anticipated Discharge Date: 01/18/18 - Physicians Team Primary Care Provider: Primary Care Aimee Boggs Attending Provider: Damien Andrews Other Providers: Pavel Ramesh MD
== END 2018-01-18 14:57 | disposition home or self-care (01) ==
LOC: NEPD 17:03 → NEDH 19:54 → N03 01-17 00:46
PROVIDERS: ADMIT Internal Medicine; ATTEND Internal Medicine